=== PATIENT | male | born 1940 | race Asian ===

== ENCOUNTER 2018-09-03 11:09 | Emergency (ER) | payer MEDICARE, OTHER ==
[~2018-09-03] VITALS: Ht 180.3 cm; Wt 98.9 kg
[2018-09-03 11:23] VITALS: Ht 180.3 cm; Wt 98.9 kg
[2018-09-03 12:08] LABS: BASOPHIL % 1.3 % (0-2); RED CELL DISTRIBUTION WIDTH 13.4 % (11.5-14.5)
[2018-09-03 12:12] LABS: PLATELET COUNT 91 x10^3mcL (130-400)
[2018-09-03 12:18] LABS: CALCIUM 8.8 mg/dL (8.5-10.1); CARBON DIOXIDE 32.5 mmol/L (21-32); CHLORIDE SERUM 104 mmol/L (98-107); CREATININE SERUM 1.1 mg/dL (0.7-1.3); GLUCOSE SERUM 132 mg/dL (74-106); POTASSIUM SERUM 3.9 mmol/L (3.5-5.1); SODIUM SERUM 141 mmol/L (136-145)
[2018-09-03 12:22] LABS: ALBUMIN 3.8 g/dL (3.4-5.0); ALKALINE PHOSPHATASE 78 U/L (46-116); ALT/SGPT 73 U/L (16-63); AST/SGOT 58 U/L (15-37); BILIRUBIN TOTAL 0.73 mg/dL (0.20-1.00); LIPASE 192 IU/L (73-393)
[2018-09-03 12:23] LABS: TOTAL PROTEIN, SERUM 8.5 g/dL (6.4-8.2)
[2018-09-03 13:01] VITALS: BP 146/96
== END 2018-09-03 13:01 | disposition home or self-care (01) ==
LOC: ED 11:09
PROVIDERS: Emergency Medicine
DX: K21.9 Gastro-esophageal reflux disease without esophagitis (principal); K29.70 Gastritis, unspecified, without bleeding; F17.210 Nicotine dependence, cigarettes, uncomplicated; Z90.49 Acquired absence of other specified parts of digestive tract
CPT/HCPCS: 36415

== ENCOUNTER 2019-08-18 12:03 | Emergency (ER) | payer OTHER, MEDICARE ==
[~2019-08-18] VITALS: Ht 177.8 cm; Wt 95.3 kg
[2019-08-18 12:09] VITALS: Ht 177.8 cm; Wt 95.3 kg
[2019-08-18 13:13] LABS: BASOPHIL % 0.2 % (0-2); RED CELL DISTRIBUTION WIDTH 14.1 % (11.5-14.5)
[2019-08-18 13:26] LABS: CALCIUM 9.1 mg/dL (8.5-10.1); CARBON DIOXIDE 27.4 mmol/L (21-32); CHLORIDE SERUM 96 mmol/L (98-107); CREATININE SERUM 1.3 mg/dL (0.7-1.3); GLUCOSE SERUM 134 mg/dL (74-106); POTASSIUM SERUM 3.7 mmol/L (3.5-5.1); SODIUM SERUM 133 mmol/L (136-145)
[2019-08-18 13:37] LABS: PLATELET COUNT 64 x10^3mcL (130-400)
[2019-08-18 13:42] LABS: ALBUMIN 3.7 g/dL (3.4-5.0); ALKALINE PHOSPHATASE 97 U/L (46-116); ALT/SGPT 41 U/L (16-63); AST/SGOT 40 U/L (15-37); BILIRUBIN TOTAL 1.33 mg/dL (0.20-1.00)
[2019-08-18 13:46] LABS: TOTAL PROTEIN, SERUM 9.7 g/dL (6.4-8.2)
[2019-08-18 18:40] VITALS: BP 137/81
== END 2019-08-18 18:40 | disposition short-term general hospital (02) ==
LOC: ED 12:03
PROVIDERS: Emergency Medicine
DX: A41.9 Sepsis, unspecified organism (principal); J18.9 Pneumonia, unspecified organism; I10 Essential (primary) hypertension; Z90.49 Acquired absence of other specified parts of digestive tract
CPT/HCPCS: J0696; J7030; Q9967